=== PATIENT | female | born 1955 | race Caucasian/White ===

== ENCOUNTER 2017-11-30 12:02 | Emergency (ER) | payer MEDICARE ==
[~2017-11-30] VITALS: Ht 167.6 cm; Wt 65.0 kg
[2017-11-30 12:54] LABS: HEMATOCRIT 43.7 % (37.0-47.0); HEMOGLOBIN 14.5 g/dl (12.0-16.0); MEAN CELL VOLUME 90.5 fL CALC (80.0-100.0); MEAN CORPUSCULAR HGB CONC 33.2 g/L CALC (32.0-36.0); NEUT# 1.56 thou/uL (2.00-7.15); RED BLOOD COUNT 4.83 mill/uL (4.20-5.60); RED CELL DISTRI WIDTH 12.1 % (11.5-15.5)
[2017-11-30 13:08] LABS: ALBUMIN 4.2 g/dL (3.2-5.0); ALKALINE PHOSPHATASE 104 u/l (38-126); ANION GAP 19 (6-22 (CALC)); BILIRUBIN, TOTAL 0.4 mg/dL (0.0-1.4); BUN 15 mg/dL (7-17); BUN/CREATININE RATIO 16 (12-20 (CALC)); CALCIUM 10.1 mg/dL (8.4-10.2); CARBON DIOXIDE 22 mmol/l (22-30); CHLORIDE 107 mmol/l (95-108); CREATININE 0.9 mg/dL (0.5-1.0); GFR > 60 ML/MIN (>=60 (CALC)); GFR FOR AFR.AMER. > 60 ML/MIN (>=60 (CALC)); GLUCOSE 158 mg/dL (65-105); POTASSIUM 3.7 mmol/l (3.5-5.1); SGOT/AST 68 u/l (14-36); SGPT/ALT 106 u/l (9-52); SODIUM 144 mmol/l (137-146); TOTAL PROTEIN 7.2 g/dL (6.3-8.2)
[2017-11-30 13:28] LABS: INFLUENZA A POSITIVE (NONE DETECT); INFLUENZA B NONE DETECTED (NONE DETECT)
[2017-11-30] MEDS ORDERED: FLEXERIL PO (14:13)
[2017-11-30] MEDS ORDERED: TAM75CAP PO (14:13)
[2017-11-30] MEDS ORDERED: ULTRAM50 M1 PO (14:16)
[2017-11-30 14:18] VITALS: BP 121/76
== END 2017-11-30 14:45 | disposition home or self-care (01) ==
LOC: ED 12:02
PROVIDERS: Emergency Medicine
DX: J11.1 Influenza due to unidentified influenza virus with other respiratory manifestations (principal); R51 Headache; R50.9 Fever, unspecified; R11.0 Nausea; R05 Cough

== ENCOUNTER 2019-09-26 11:05 | Emergency (ER) | payer MEDICARE ==
[~2019-09-26] VITALS: Ht 167.6 cm; Wt 64.0 kg
[~2019-09-26 11:05] MED LIST: FLEXERIL PO; TAM75CAP PO; ULTRAM50 M1 PO
[2019-09-26] MEDS ORDERED: MELOXICAM15 MG PO (11:20)
[2019-09-26] MEDS ORDERED: TOPAMAX50 M1 PO (11:20)
[2019-09-26] MEDS ORDERED: BACTRIM DS1 TAB PO (11:43)
[2019-09-26 11:55] VITALS: BP 118/67
== END 2019-09-26 11:55 | disposition home or self-care (01) ==
LOC: ED 11:05
DX: L03.031 Cellulitis of right toe (principal); G62.9 Polyneuropathy, unspecified

== ENCOUNTER 2020-03-11 | Emergency (ER) | payer MEDICARE ==
[~2020-03-11] MED LIST changes: +BACTRIM DS1 TAB PO; +MELOXICAM15 MG PO; +TOPAMAX50 M1 PO
[2020-03-11] MEDS ORDERED: TRAMADOL HYDROC50 MG PO (11:46)
[2020-03-11] MEDS ORDERED: IBUPROFEN600 MG PO (11:46)
== END 2020-03-11 12:30 | disposition home or self-care (01) ==
DX: S83.92XA Sprain of unspecified site of left knee, initial encounter (principal); X50.3XXA Overexertion from repetitive movements, initial encounter; Y93.01 Activity, walking, marching and hiking
CPT/HCPCS: L1830

== ENCOUNTER 2020-10-11 09:38 | Emergency (ER) | payer MEDICARE ==
[~2020-10-11] VITALS: Ht 167.6 cm; Wt 67.7 kg
[~2020-10-11 09:38] MED LIST changes: +IBUPROFEN600 MG PO; +TRAMADOL HYDROC50 MG PO
[2020-10-11 10:59] LABS: HEMATOCRIT 42.8 % (37.0-47.0); HEMOGLOBIN 13.8 g/dl (12.0-16.0); IMMATURE GRANULOCYTES 0.3 % (0.0-5.0); MEAN CELL VOLUME 91.8 fL CALC (80.0-100.0); MEAN CORPUSCULAR HGB 29.6 pG CALC (26.0-32.0); MEAN CORPUSCULAR HGB CONC 32.2 g/dL CAL (32.0-36.0); NEUT# 4.02 thou/uL (2.00-7.15); RED BLOOD COUNT 4.66 mill/uL (4.20-5.60); RED CELL DISTRI WIDTH 12.1 % (11.5-15.5)
[2020-10-11 11:20] LABS: ALBUMIN 4.3 g/dL (3.2-5.0); ALKALINE PHOSPHATASE 81 u/l (38-126); ANION GAP 12 (6-22 (CALC)); BILIRUBIN, TOTAL 0.4 mg/dL (0.0-1.4); BUN 16 mg/dL (8-23); BUN/CREATININE RATIO 17 (12-20 (CALC)); CARBON DIOXIDE 26 mmol/l (22-30); CHLORIDE 108 mmol/l (95-108); CREATININE 0.9 mg/dL (0.5-1.0); GFR > 60 ML/MIN (>=60 (CALC)); GFR FOR AFR.AMER. > 60 ML/MIN (>=60 (CALC)); LIPASE 89 u/l (23-300); POTASSIUM 4.1 mmol/l (3.5-5.1); SGOT/AST 31 u/l (9-36); SODIUM 143 mmol/l (137-146); TOTAL PROTEIN 7.7 g/dL (6.3-8.2)
[2020-10-11] MEDS ORDERED: HYDROCO/APAP1 TA9 PO (11:59)
[2020-10-11] MEDS ORDERED: TAMSULOSIN0.4 MG PO (11:59)
[2020-10-11 12:28] LABS: URINE BILIRUBIN - DIPSTICK NEGATIVE (NEGATIVE); URINE BLOOD DIPSTICK LARGE (NEGATIVE); URINE COLOR YELLOW; URINE GLUCOSE - DIPSTICK NEGATIVE (NEGATIVE); URINE KETONE NEGATIVE (NEGATIVE); URINE LEUK ESTERASE NEGATIVE (NEGATIVE); URINE NITRITE - DIPSTICK NEGATIVE (Negative); URINE PROTEIN - DIPSTICK TRACE mg/dL (NEG-TRACE); URINE UROBILINOGEN - DIPSTICK 0.2 E.U./dL (0.2)
[2020-10-11 12:29] LABS: URINE RBC 25-50 RBC/hpf (0-5)
[2020-10-11 12:49] VITALS: BP 134/64
== END 2020-10-11 12:50 | disposition home or self-care (01) ==
LOC: ED 09:38
PROVIDERS: Family Medicine
DX: N13.2 Hydronephrosis with renal and ureteral calculous obstruction (principal); G62.9 Polyneuropathy, unspecified

== ENCOUNTER 2021-04-03 07:31 | Emergency (ER) | payer MEDICARE ==
[~2021-04-03] VITALS: Ht 167.6 cm; Wt 68.0 kg
[~2021-04-03 07:31] MED LIST changes: +HYDROCO/APAP1 TA9 PO; +TAMSULOSIN0.4 MG PO
[2021-04-03] MEDS ORDERED: MEDDOSEPAK PO (08:59)
[2021-04-03] MEDS ORDERED: ULTRAM50 MG PO (08:59)
[2021-04-03 09:07] VITALS: BP 123/59
== END 2021-04-03 09:20 | disposition home or self-care (01) ==
LOC: ED 07:31
DX: M51.17 Intervertebral disc disorders with radiculopathy, lumbosacral region (principal); G62.9 Polyneuropathy, unspecified

== ENCOUNTER 2024-12-05 20:42 | Emergency (ER) | payer MEDICARE ==
[~2024-12-05] VITALS: Ht 167.6 cm; Wt 57.0 kg
[~2024-12-05 20:42] MED LIST changes: +MEDDOSEPAK PO; +ULTRAM50 MG PO
[2024-12-05 21:30] VITALS: BP 120/70
== END 2024-12-05 21:30 | disposition home or self-care (01) ==
LOC: ED 20:42
DX: Z03.89 Encounter for observation for other suspected diseases and conditions ruled out (principal); G62.9 Polyneuropathy, unspecified